=== PATIENT | female | born 1995 | race Caucasian/White ===

== ENCOUNTER 2019-01-14 01:40 | Inpatient (IN) | payer SELFPAY ==
[2019-01-14 02:22] VITALS: BMI 28.9
[2019-01-14] MEDS: Lactated Ringers 1,000 ML 999 ML IV (02:25)
--- NOTE | 2019-01-14 03:21 | HP.PCM_ITS ---
- Problem List (1) History of ITP Status: Acute (2) Post-dates Status: Acute (3) Active labor at term Status: Acute (4) Positive GBS test Status: Acute History Date of Admission: 01/14/19 Final BARBRA: 01/12/19 Gestational age: 40 Weeks and 2 Days History of this : This is a 23 year-old, , at 40 weeks gestational age presents IAL 3-4 cm dilated, history of GBS positive in , history of itp after previous delivery. she has been followed with platelet counts this and she had a count of 264 last week. she had home births with the other pregnancies that were uncomplicated other than the ITP which was not immediate. she has had increasing regular ctx overnight and some bloody show, no lof or gross vb. . Medical History: Medical History (Last Updated 01/14/19 @ 03:25 by Rupa Mclaughlin MD) History of ITP (Acute) Z86.2 Allergies No Known Allergies Allergy (Verified 01/14/19 02:23) Home Medications: Home Medications Pnv No.95/Ferrous Fum/Folic AC [ Caplet] 1 ea PO 01/14/19 Smoking Status: Never smoker Alcohol: None Number of Fetus(es): 1 NST - FHR Rate Baby A Baseline: 130 Variability:: Moderate Accelerations:: 15 x 15 Decelerations:: None NST Reactive:: Yes FHR Category:: Category I Uterine Activity:: regular History Past Pregnancies: Past Pregnancies 2 previous term at home. itp after second but not immediate Labs: Mom's Problem List Problem Status Onset Code History of ITP Acute Z86.2 Post-dates Acute O48.0 Active labor at term Acute Positive GBS test Acute B95.1 History of ITP Acute Z86.2 Mom's Labs & Results 01/14/19 01/14/19 01/14/19 02:30 02:30 02:30 WBC 10.4 RBC 3.91 L Hgb 12.8 Hct 37.2 MCV 95.1 MCH 32.7 H MCHC 34.4 RDW Std Deviation 47.3 H RDW Coeff of Itzel 13.5 Plt Count 293 MPV 12.2 H Immature Gran % (Auto) 1.100 H Neut % (Auto) 62.7 Lymph % (Auto) 25.8 Price % (Auto) 9.4 Eos % (Auto) 0.6 Baso % (Auto) 0.4 Absolute Neuts (auto) 6.5 Absolute Lymphs (auto) 2.69 Nucleated RBC % 0 RPR Pending Hep Bs Antigen Hepatitis C Antibody HIV 1&2 Antibody Rubella IgG Antibody Blood Type Pending Antibody Screen Pending 01/14/19 01/14/19 02:30 02:30 WBC RBC Hgb Hct MCV MCH MCHC RDW Std Deviation RDW Coeff of Itzel Plt Count MPV Immature Gran % (Auto) Neut % (Auto) Lymph % (Auto) Price % (Auto) Eos % (Auto) Baso % (Auto) Absolute Neuts (auto) Absolute Lymphs (auto) Nucleated RBC % RPR Hep Bs Antigen Pending Hepatitis C Antibody Pending HIV 1&2 Antibody Pending Rubella IgG Antibody Pending Blood Type Antibody Screen Course Did the patient receive Yes care? Labs Blood Type: O RH: POSITIVE HbSAg Collected on Admission HIV/AIDS Unknown Group B Strep: Positive Other Lab Procedures/Results/ all labs collected on admission Comments: Current Obstetrical History Gestational Diabetes No Incompetent Cervix No Infertility No IUGR No Macrosomia No Hypertension/Pre-eclampsia No Placenta Previa/Abruption No PTL/PROM No Uterine anomaly No Oligohydramnios No Polyhydramnios No Multiple gestation No Past Medical History Asthma No Diabetes No Hypertension No Heart disease No Mitral valve prolapse No Neurologic/Seizure disorder/ No Migraines Kidney disease No Liver disease No Varicosities No Clotting disorders/Hx of DVT Yes: ITP after first delivery Thyroid Dysfunction No Other medical diseases No Psychiatric disorders No Major trauma No Abnormal PAP smear No Sleep apnea No Mammogram in the last 2 years No Social History Marital Status: Alleged father renard roy Hx Smoking No Smoking Status Never smoker Expected Infant Delivery Method: Spontaneous Vaginal Review of Systems Constitutional: Denies: Fever, Malaise Eyes: Denies: Blurred vision, Vision Change HEENT: Denies: Head Aches, Visual Changes Cardiovascular: Denies: Chest Pain, Palpitations Respiratory: Denies: Cough, Shortness of Breath, Wheezing Gastrointestinal: Denies: Abdominal Pain, Diarrhea, Nausea, Vomiting Genitourinary: Denies: Dysuria, Hematuria Musculoskeletal: Denies: Joint Pain, Muscle pain Skin: Denies: Lesions, Rash Neurological: Denies: Blurred vision, Focal weakness, Headaches Psychiatric: Denies: Anxiety, Depression Endocrine: Denies: Heat/ Cold Intolerance Hematologic/ Lymphatic: Denies: Easy Bruising, Easy Bleeding Physical Exam General: Alert, Cooperative, No apparent distress HEENT: Atraumatic, Normocephalic. Negative for: Thyromegaly, Lymphadenopathy Cardiovascular: Regular rate Lungs: Normal air movement Abdomen: Soft, Non Tender, Gravid Neurological: Deep Tendon Reflexes 2+/4 and Symmetrical, Neuro grossly intact. Negative for: Clonus ELECTRIC POWER LINE EXAMINER: Normal external genitalia. Negative for: Vulvar lesions Estimated gestational size: Appropriate for gestational size Presentation: Cephalic Cervix Dilation (cm): 3.5 Station: 0 Effacement (%): 70 Assessment/Plan All Active Problems History of ITP (Acute) Post-dates (Acute) Active labor at term (Acute) Positive GBS test (Acute) This is a 23 year-old, , at 40 weeks gestational age presents IAL 40 weeks. plan management, platelets normal. gbs positive give pcn. exp management for now
[2019-01-14 03:22] LABS: Absolute Lymphocyte Count 2.69 X10^3/uL (0.83-4.51); Absolute Neutrophil Count 6.5 X10^3/uL (2.0-7.7); Basophil# 0.04 X10^3/uL; Basophil% 0.4 % (0-1); Eosinophil# 0.06 X10^3/uL; Eosinophils% 0.6 % (0-5); Hematocrit 37.2 % (37-47); Hemoglobin 12.8 g/dL (12.0-15.0); Lymphocyte # 2.69 X10^3/ul (4.0); Lymphocyte % 25.8 % (19-41); Mean Corp Hgb Conc 34.4 g/dL (32-36); Mean Corpuscular Hgb 32.7 pg (27.0-32.0); Mean Corpuscular Volume 95.1 fL (81-99); Mean Platelet Vol. 12.2 fl (6.2-12.0); Monocyte# 0.98 X10^3/uL; Monocyte% 9.4 % (0-10); NRBC Flagged by Analyzer 0 % (0-5); Neutrophil # 6.54 X10^3/uL (2.7-7.7); Neutrophil % 62.7 % (47-70); Platelet Count 293 K/mm3 (150-450); RBC Distribution Width CV 13.5 % (11.6-14.6); RBC Distribution Width SD 47.3 fl (35.1-43.9); Red Blood Count 3.91 M/mm3 (4.2-5.4); White Blood Count 10.4 K/mm3 (4.4-11.0)
[2019-01-14] MEDS: Lactated Ringers 1,000 ML 50 ML IV ×2 (07:04)
[2019-01-14] MEDS: 0.9% Saline Lock 10 ML Syringe IV ×2 (07:08→13:47)
[2019-01-14 07:31] LABS: Chlamydia Trachomatis by PCR Negative (Negative); Neisserai gonorrhoeae by PCR Negative (Negative); Probe Check PASS; Sample Adequacy Control PASS; Specimen Processing Control PASS
[2019-01-14] MEDS: Oxytocin 30 units/NS 500 ml 30 UNITS/500 ML IV.SOLN IV (08:50)
[2019-01-14] MEDS: Nalbuphine 10 MG/ML Ampul IV (10:12)
[2019-01-14] MEDS: Oxytocin 30 units/NS 500 ml 30 UNITS/500 ML IV.SOLN 334 UNITS IV (12:15)
--- NOTE | 2019-01-14 12:23 | PCM.OPRPT ---
Problem List (1) History of ITP Status: Acute (2) Post-dates Status: Acute (3) Active labor at term Status: Acute (4) Positive GBS test Status: Acute Vaginal Delivery Maternal Presentation: Active Labor Patient presented in active labor was augmented with Pitocin and artificial rupture membranes 40 weeks 2 days history of GBS positive Amniotic Membrane Rupture Type: Artificial Amniotic Fluid Description: Clear Date of Procedure: 01/14/19 Pre-Operative Diagnosis: ial Post-Operative Diagnosis: same Surgery/ Procedure Performed: Spontaneous Vaginal Delivery Type of Anesthesia: Epidural Description of Procedure: Patient began pushing and delivered the head in the COLTEN presentation. The head was delivered atraumatically . The anterior and posterior shoulders delivered without complication followed by the rest of the infant and the was placed on the maternal abdomen. Delayed cord clamping was employed for approximately 60 seconds. Cord was clamped and cut and gentle traction was applied to the cord and the placenta delivered spontaneously immediately following it was noted to be intact with three-vessel cord with cord avulsion but intact membranes and placenta. The perineum and vagina were inspected and noted to have no laceration. EBL was 300 cc. Patient and infant tolerated delivery well. Presentation: COLTEN Placental Delivery Description: Spontaneous Placenta Disposition: [facility] Cord Vessel Description: 3 Vessels Cord Entanglement: None Drain: [place] to straight drain Estimated Blood Loss: 300 A gender: Male Episiotomy Description: None Laceration: None Medications given after delivery: IV Pitocin Complications: None
--- NOTE | 2019-01-14 12:28 | DCINST_ITS ---
Discharge Diet: No Restrictions Discharge Activity: Return to Normal Activity, May not drive while taking narcotic pain medications., May Shower May resume sexual activity in: 4-6 weeks Call your doctor if your incision/area has: Continuous Slow Oozing, Sudden Increased Bleeding, Increased Pain/ Swelling, Increased Redness, Foul Smelling Discharge Additional Instructions: If you experience any of the following, contact your healthcare provider. * Bleeding that soaks a pad every hour for 2 hours * Fever 100.4 or higher * Unrelieved incision or abdominal pain * Swelling, redness, discharge or bleeding from your incision or episiotomy site * Your incision begins to separate * Problems urinating (including inability to urinate or burning while urinating). * Visual changes * Severe headache * Flu-like symptoms * Pain or redness in one of both of your breasts * Pain, warmth, tenderness or swelling in your legs, especially the calf area * Frequent nausea and vomiting * Symptoms of depression or anxiety If you experience any of the following, call 911 or go to the nearest Emergency Room. * Chest pain * Problems breathing * Seizure activity * Partial or complete paralysis of a body part, slurred speech, weakness or drooping of the face, or a sudden inability to walk or hold your balance Allergies/Adverse Reactions: Allergies No Known Allergies Allergy (Verified 01/14/19 02:23) Medications to take at Discharge Pnv No.95/Ferrous Fum/Folic AC [ Caplet] 1 ea PO 01/14/19 Please Follow Up With: Rupa Mclaughlin MD - [phone] When: Call to make an appointment with your doctor in 6 weeks. If you had elevated Blood pressure or 4th degree laceration you will need to be seen in 2 weeks. Test Results: Test results from this visit will be discussed in further detail at your follow- up appointment, if applicable.
--- NOTE | 2019-01-14 12:28 | PCM.DCVAG ---
Discharge Diet: No Restrictions Discharge Activity: Return to Normal Activity, May not drive while taking narcotic pain medications., May Shower May resume sexual activity in: 4-6 weeks Call your doctor if your incision/area has: Continuous Slow Oozing, Sudden Increased Bleeding, Increased Pain/ Swelling, Increased Redness, Foul Smelling Discharge Additional Instructions: If you experience any of the following, contact your healthcare provider. Bleeding that soaks a pad every hour for 2 hours Fever 100.4 or higher Unrelieved incision or abdominal pain Swelling, redness, discharge or bleeding from your incision or episiotomy site Your incision begins to separate Problems urinating (including inability to urinate or burning while urinating). Visual changes Severe headache Flu-like symptoms Pain or redness in one of both of your breasts Pain, warmth, tenderness or swelling in your legs, especially the calf area Frequent nausea and vomiting Symptoms of depression or anxiety If you experience any of the following, call 911 or go to the nearest Emergency Room. Chest pain Problems breathing Seizure activity Partial or complete paralysis of a body part, slurred speech, weakness or drooping of the face, or a sudden inability to walk or hold your balance Allergies/Adverse Reactions: Allergies No Known Allergies Allergy (Verified 01/14/19 02:23) Medications to take at Discharge Pnv No.95/Ferrous Fum/Folic AC [ Caplet] 1 ea PO 01/14/19 Please Follow Up With: Rupa Mclaughlin MD - [phone] When: Call to make an appointment with your doctor in 6 weeks. If you had elevated Blood pressure or 4th degree laceration you will need to be seen in 2 weeks. Test Results: Test results from this visit will be discussed in further detail at your follow-up appointment, if applicable.
[2019-01-14 16:57] LABS: HIV - WCH Non-Reactive (Nonreactive); Hepatitis B Surface Antigen Non-Reactive (Nonreactive); Hepatitis C Antibody Non-Reactive (Nonreactive)
[2019-01-14 17:02] LABS: Rubella IgG 7.5 IU/mL
[2019-01-14 17:15] VITALS: BP 110/59; PULSE 117; RESP 16; TEMP 37.5
[2019-01-14 20:05] VITALS: BP 99/59; PULSE 120; RESP 17; TEMP 37.3
[2019-01-14 23:50] VITALS: BP 90/53; PULSE 82; RESP 17; TEMP 36.3
[2019-01-15 04:00] VITALS: BP 101/57; PULSE 76; RESP 17; TEMP 36.1
[2019-01-15] MEDS: Acetaminophen 500 MG Tablet 1000 MG PO (07:21)
[2019-01-15 08:30] VITALS: BP 96/54; PULSE 65; RESP 16; TEMP 36.8; O2SAT 96
--- NOTE | 2019-01-15 11:04 | PCM.PN.OB ---
Patient Problems: Active and Suspected Problems (Last Updated 01/14/19 @ 03:25 by Rupa Mclaughlin MD) History of ITP (Acute) Post-dates (Acute) Active labor at term (Acute) Positive GBS test (Acute) History of ITP (Acute) Subjective: doing well no complaints pain controlled no CP SOB N V ambulating well tolerating po lochia moderate, going well - Physical Exam Vital Signs Temp Pulse Resp BP Pulse Ox 98.3 F 65 16 96/54 L 96 01/15/19 08:30 01/15/19 08:30 01/15/19 08:30 01/15/19 08:30 01/15/19 08:30 Oxygen Delivery Method Room Air Weight: 153 lb Body Mass Index (BMI) 28.9 Intake and Output for Last 24 Hours 01/13/19 01/14/19 01/15/19 23:59 23:59 23:59 Intake Total 1621.35 / 1621.35 Output Total 550 / 550 Balance 1071.35 / 1071.35 Laboratory Tests Past 24 Hrs 01/14/19 01/14/19 02:30 02:30 Hep Bs Antigen Non-Reactive Hepatitis C Antibody Non-Reactive HIV 1&2 Antibody Non-Reactive Rubella IgG Antibody 7.5 Medical Necessity - Tobacco Use Smoking Status: Never smoker Assessment/Plan All Active Problems (Last Updated 01/14/19 @ 03:25 by Rupa Mclaughlin MD) History of ITP (Acute) Post-dates (Acute) Active labor at term (Acute) Positive GBS test (Acute) History of ITP (Acute) s/p PPD # 1 1. routine post delivery care 2. breast feeding- support given 3. rh positive 4. rubella immune
[2019-01-15 14:00] VITALS: BP 105/62; PULSE 91; TEMP 36.8; O2SAT 98
[2019-01-19 01:38] LABS: Rapid Plasmin Reagin (RPR) NONREACTIVE (NONREACTIVE)
== END 2019-01-15 15:20 | disposition home or self-care (01) | DRG 806 ==
PROVIDERS: Admitting Provider Obstetrics & Gynecology; Referring Provider Obstetrics & Gynecology; Visit Provider Obstetrics & Gynecology
DX: O48.0 Post-term pregnancy (principal); O99.12 Other diseases of the blood and blood-forming organs and certain disorders involving the immune mechanism complicating childbirth; Z37.0 Single live birth; Z3A.40 40 weeks gestation of pregnancy; O99.824 Streptococcus B carrier state complicating childbirth
CPT/HCPCS: 59025; 59050; 85025; 86592; 86703; 86762; 86803; 86850; 86900; 86901; 87340; 87491; 87591; 99218; J7120; A4216; G0378